=== PATIENT | male | born 1950 | race Caucasian/White ===

== ENCOUNTER → 2019-02-17 | Outpatient (REF) | LOC: M LAB LCGH 15:18 | PROVIDERS: ATTEND Surgery | DX: R10.9 Unspecified abdominal pain (principal) ==

== ENCOUNTER → 2020-03-01 | Outpatient (CLI) | payer MEDICARE, MEDICAID ==
--- NOTE | 2020-03-01 10:49 | REP ---
INDICATION: ABN FINDING LUNG FIELD. COMPARISON: Chest x-ray 04/29/2019, CT 04/25/2019, 05/24/2018, 02/01/2017 all from outside facility. TECHNIQUE: Noncontrast scanning through the chest with coronal and sagittal reconstructions. FINDINGS: The 1st and the 3rd through 8th, 10th and 11th ribs on the left all show prior healed or healing fractures as present on CT 04/25/2019 there is now a defect in the diaphragm on the left side in the central portion with some fat transiting that defect into the chest. This is separate and not related to the prominent epicardial fat pad seen previously on CTs in 2019 before trauma. There is some compressive atelectasis in the inferior lingular segment of the left upper lobe adjacent left heart border and abutting the epicardial fat pad. In the lateral basal segment of the left lower lobe abutting the diaphragm and adjacent abdominal fat transmitted through the diaphragm, there is subsegmental atelectatic change. Cylindrical bronchiectatic change noted in both lungs some areas of irregular pleural thickening in the lateral aspect posterior segment right upper lobe and some adjacent scar are unchanged. Some atelectatic change as well some ground-glass opacity scattered in the upper lung zones as well as curvilinear fibro atelectatic change and bullous emphysematous changes bilaterally. O This represents advanced COPD. I do not see calcified pleural plaques. No pleural effusion. Heart size not enlarged. There is no pericardial thickening or effusion. Some coronary artery calcifications are seen. The aorta has calcifications at the arch without aneurysm. No hiatal hernia. No pathologic sized mediastinal or hilar adenopathy. No axillary or supraclavicular mass. Bone windows show the thoracic spine with a few superior endplate depressions in the upper thoracic region all unchanged from 2019. Posterior elements and right ribs were unchanged and unremarkable for any acute process. Some old healed and remodeled right posterolateral rib fractures are seen. Clavicle show hardware fixation on the right as before the left clavicle shows an ununited prior fracture which was acute on the 04/25/2019 study. 9 of the upper abdomen shows liver and spleen not enlarged. There are clips from prior cholecystectomy. Adrenal glands and upper poles kidneys intact. That portion of the pancreas included was unremarkable. IMPRESSION: Posttraumatic changes with multiple left-sided rib fractures from upper to lower chest as on CT 05/22/2019. Some of these are healed others are not yet united. Some adjacent lateral pleural thickening noted Left diaphragm now with a defect and abdominal fat on both sides of the diaphragm. There is also a prominent left epicardial fat pad unchanged from previous studies. Compressive atelectatic changes are noted adjacent to the epicardial fat pad and the abdominal fat that newly passed above the diaphragm. No gross effusion. No mass. Pleural thickening and scar peripherally right mid upper lung zone and scattered areas of ground-glass opacity, bullous emphysematous changes, cylindrical bronchiectasis and other curvilinear scars noted. Ununited mid left clavicular fracture with no other significant or acute finding. <Electronically signed by Nate Santiago > 03/01/20 [id number]
== END ==
LOC: M RAD 09:10
PROVIDERS: ATTEND Internal Medicine Pulmonary Disease
DX: R91.8 Other nonspecific abnormal finding of lung field (principal)

== ENCOUNTER → 2022-01-02 | Outpatient (CLI) | payer MEDICARE, MEDICAID ==
[~2022-01-02] MED LIST: GASTROGRAFIN SOLUTION 30ML (Q9963) As Ordered ONE; ISOVUE-370 76% 100ML VIAL As Ordered ONE
== END ==
LOC: M RAD 09:33
PROVIDERS: ATTEND Surgery
DX: K43.3 Parastomal hernia with obstruction, without gangrene (principal)
CPT/HCPCS: 74178; Q9963; Q9967